=== PATIENT | female | born 1945 | race Caucasian/White ===

== ENCOUNTER 2020-07-01 06:16 | Inpatient (IN) ==
[2020-06-20 11:40] LABS: Hematocrit 45.7 VOL% (35.7-47.0); Hemoglobin 14.8 GM/DL (12.0-16.0); Red Blood Count 4.59 MC/CUMM (3.8-5.5); White Blood Count 7.5 T/CUMM (4-12)
[2020-06-20 11:41] LABS: Basophils # 0.1 10*3/uL (0.0-0.2); Basophils % 0.7 % (0.0-0.8); Eosinophils # 0.1 10*3/uL (0.0-0.87); Eosinophils % 1.6 % (0.00-10.9); Immature Granulocytes % 0.3 %; Immature Granulocytes Absolute 0.02 #; Lymphocytes # 3.1 10*3/uL (1.4-4.0); Lymphocytes % 41.7 % (21.3-54.2); Mean Corpuscular HGB Conc 32.4 GM/DL (32-36); Mean Corpuscular Volume 99.6 FL (87-102); Mean Platelet Volume 11.1 FL (9.6-12.0); Monocytes % 8.7 % (1.7-12.7); Platelet Count 196 T/CUMM (130-400); Red Cell Distribution Width 13.8 % (9.3-17.3)
[2020-06-20 11:45] LABS: Albumin 3.9 G/DL (3.4-5.0); Bilirubin,Total 0.4 MG/DL (0.2-1.0); Calcium 9.3 MG/DL (8.5-10.1); Potassium 4.2 MMOL/L (3.5-5.1); Total Protein 8.1 G/DL (5.0-7.5)
[2020-06-20 11:54] LABS: PT Patient Result 10.9 SECS (9.8-11.9)
[~2020-07-01 06:16] MED LIST: LACTATED RINGERS 1,000 ML IV SCH; ceFAZolin 1,000 MG in SYRINGE 1 EACH IV ONE
[2020-07-01] MEDS ORDERED: LIDOCAINE 1% 5 ML VIAL ONE (07:05)
[2020-07-01] MEDS ORDERED: DEXAMETHASONE 4 MG/1 ML VIAL ONE (07:05)
[2020-07-01] MEDS ORDERED: ROPIVACAINE 0.5% 30 ML VIAL ONE (07:05)
[2020-07-01] MEDS ORDERED: DEXMEDETOMIDINE 200 MCG/2 ML VIAL ONE (07:09)
[2020-07-01] MEDS ORDERED: HEPARIN/NACL 0.9% 2 UNITS/ML 500 ML IV ONE (07:09)
[2020-07-01] MEDS ORDERED: NITROGLYCERIN DRIP 0 MG/0 ML BOTTLE IV ONE (07:23)
[2020-07-01] MEDS ORDERED: PHENYLEPHRINE DRIP 0 MG/0 ML PREMIX IV ONE (07:24)
[2020-07-01] MEDS ORDERED: fentaNYL 100 MCG/2 ML VIAL ONE (07:32)
[2020-07-01] MEDS ORDERED: TISSUE ADHESIVE 1 EACH APPLICATOR TOP ONE (07:48)
[2020-07-01] MEDS ORDERED: VANCOMYCIN 500 MG VIAL ONE (07:48)
[2020-07-01] MEDS ORDERED: GLYCOPYRROLATE 0.4 MG/2 ML VIAL ONE ×2 (09:27→10:02)
[2020-07-01] MEDS ORDERED: ROCURONIUM 50 MG/5 ML VIAL IV ONE (09:27)
[2020-07-01] MEDS ORDERED: ETOMIDATE 40 MG/20 ML VIAL IV ONE (09:28)
[2020-07-01] MEDS ORDERED: LIDOCAINE 2% 5 ML VIAL ONE (09:28)
[2020-07-01] MEDS ORDERED: NEOSTIGMINE 10 MG/10 ML VIAL ONE (10:02)
[2020-07-01] MEDS ORDERED: ONDANSETRON 4 MG/2 ML VIAL IV PRN (10:16)
[2020-07-01] MEDS ORDERED: BISACODYL 5 MG TABLET PO PRN (10:16)
[2020-07-01] MEDS ORDERED: GLUCAGON 1 MG VIAL IM PRN (10:23)
[2020-07-01] MEDS ORDERED: DEXTROSE 50% 25 GM/50 ML VIAL IV PRN (10:23)
[2020-07-01] MEDS: fentaNYL 2 MCG/ROPIV 0.2% EPID 100 ML EPIDURAL SCH (10:40)
[2020-07-01] MEDS ORDERED: SEVOFLURANE 1 UNIT/15 MINUTE INH ONE (11:46)
[2020-07-01] MEDS: LACTATED RINGERS 1,000 ML IV SCH ×3 (13:35→23:00)
[2020-07-01] MEDS: ALBUTEROL/IPRATROPIUM 3 ML NEB RESP TX SCH ×2 (14:35→19:20)
[2020-07-01] MEDS: SIMVASTATIN 20 MG TABLET PO SCH (21:15)
[2020-07-02] MEDS: ALBUTEROL/IPRATROPIUM 3 ML NEB RESP TX SCH ×4 (00:14→19:27)
[2020-07-02] MEDS ORDERED: ENOXAPARIN 40 MG/0.4 ML SYRINGE SUBCUT SCH (04:20)
[2020-07-02] MEDS: fentaNYL 2 MCG/ROPIV 0.2% EPID 100 ML EPIDURAL SCH (05:06)
[2020-07-02] MEDS: LACTATED RINGERS 1,000 ML IV SCH (05:38)
[2020-07-02 06:25] LABS: Basophils % 0.2 % (0.0-0.8); Hematocrit 39.1 VOL% (35.7-47.0); Hemoglobin 12.7 GM/DL (12.0-16.0); Immature Granulocytes % 0.3 %; Immature Granulocytes Absolute 0.04 #; Lymphocytes # 1.5 10*3/uL (1.4-4.0); Lymphocytes % 11.6 % (21.3-54.2); Mean Corpuscular HGB Conc 32.5 GM/DL (32-36); Monocytes % 7.5 % (1.7-12.7); Neutrophils % 80.4 % (38.7-73.9); Platelet Count 147 T/CUMM (130-400); Red Blood Count 3.91 MC/CUMM (3.8-5.5); Red Cell Distribution Width 13.5 % (9.3-17.3); White Blood Count 12.7 T/CUMM (4-12)
[2020-07-02 06:38] LABS: Calcium 8.3 MG/DL (8.5-10.1); Osmolality,Calculated 280.7 MOS/KG (273-304); Potassium 4.1 MMOL/L (3.5-5.1)
[2020-07-02 06:51] LABS: Hypochromasia Slight; Microcytosis Slight; Platelet Estimate Adequate
[2020-07-02] MEDS: sitaGLIPtin 25 MG TABLET PO SCH (09:50)
[2020-07-02] MEDS: ASPIRIN EC 81 MG TABLET PO SCH (09:51)
[2020-07-02] MEDS: PANTOPRAZOLE 40 MG TABLET PO SCH (09:51)
[2020-07-02] MEDS: CLOPIDOGREL 75 MG TABLET PO SCH (11:18)
[2020-07-02] MEDS: BYDUREON SUBCUT SCH (16:10)
[2020-07-02 18:38] LABS: Bilirubin,Urine Negative (Negative); Blood, Urine Small mg/dL (Negative); Glucose,Urine (UA) Negative (Negative); Ketones,Urine Negative (Negative); Mucus,Urine Occasional /LPF (Occasional); Nitrite,Urine Negative (Negative); Protein,Urine Negative; RBC,Urine 2 /HPF (0-4); Squamous Epithelial Cell,Urine Occasional /HPF (0-10); Urine Appearance Slightly Hazy (Clear); Urine Color Yellow (Yellow); Urine Specific Gravity 1.013 (1.001-1.035); Urine Urobilinogen < 2.0 EU/DL (0.2-1.0); WBC,Urine 124 /HPF (0-6)
[2020-07-02] MEDS: SIMVASTATIN 20 MG TABLET PO SCH (21:45)
[2020-07-03] MEDS: ALBUTEROL/IPRATROPIUM 3 ML NEB RESP TX SCH ×4 (00:16→20:02)
[2020-07-03] MEDS: fentaNYL 2 MCG/ROPIV 0.2% EPID 100 ML EPIDURAL SCH (02:26)
[2020-07-03] MEDS: ASPIRIN EC 81 MG TABLET PO SCH (08:52)
[2020-07-03] MEDS: PANTOPRAZOLE 40 MG TABLET PO SCH (08:52)
[2020-07-03] MEDS: CLOPIDOGREL 75 MG TABLET PO SCH (08:52)
[2020-07-03] MEDS: sitaGLIPtin 25 MG TABLET PO SCH (08:52)
[2020-07-03] MEDS ORDERED: HYDROmorphone 2 MG/1 ML VIAL IV PRN (14:04)
[2020-07-03] MEDS ORDERED: oxyCODONE/ACETAMINOPHEN 5-325 MG TABLET PO PRN ×2 (14:05→14:29)
[2020-07-03] MEDS ORDERED: KETOROLAC 30 MG/1 ML VIAL IV ONE (15:00)
[2020-07-03] MEDS: KETOROLAC 10 MG TABLET PO SCH (20:58)
[2020-07-03] MEDS: SIMVASTATIN 20 MG TABLET PO SCH (20:59)
[2020-07-04] MEDS: ALBUTEROL/IPRATROPIUM 3 ML NEB RESP TX SCH ×4 (01:34→20:21)
[2020-07-04] MEDS: KETOROLAC 10 MG TABLET PO SCH ×4 (03:05→20:25)
[2020-07-04 06:26] LABS: Calcium 8.5 MG/DL (8.5-10.1); Osmolality,Calculated 280.5 MOS/KG (273-304); Potassium 3.8 MMOL/L (3.5-5.1)
[2020-07-04] MEDS: CLOPIDOGREL 75 MG TABLET PO SCH (08:53)
[2020-07-04] MEDS: ASPIRIN EC 81 MG TABLET PO SCH (08:53)
[2020-07-04] MEDS: PANTOPRAZOLE 40 MG TABLET PO SCH (08:53)
[2020-07-04] MEDS: sitaGLIPtin 25 MG TABLET PO SCH (08:54)
[2020-07-04] MEDS: SIMVASTATIN 20 MG TABLET PO SCH (20:26)
[2020-07-04] MEDS: ENOXAPARIN 30 MG/0.3 ML SYRINGE SUBCUT SCH (20:27)
[2020-07-05] MEDS: ALBUTEROL/IPRATROPIUM 3 ML NEB RESP TX SCH ×4 (01:16→19:30)
[2020-07-05] MEDS: KETOROLAC 10 MG TABLET PO SCH ×4 (03:00→20:37)
[2020-07-05] MEDS: PANTOPRAZOLE 40 MG TABLET PO SCH (09:03)
[2020-07-05] MEDS: sitaGLIPtin 25 MG TABLET PO SCH (09:03)
[2020-07-05] MEDS: CLOPIDOGREL 75 MG TABLET PO SCH (09:03)
[2020-07-05] MEDS: ASPIRIN EC 81 MG TABLET PO SCH (09:03)
[2020-07-05] MEDS: ENOXAPARIN 30 MG/0.3 ML SYRINGE SUBCUT SCH (20:37)
[2020-07-05] MEDS: SIMVASTATIN 20 MG TABLET PO SCH (20:37)
[2020-07-06] MEDS: ALBUTEROL/IPRATROPIUM 3 ML NEB RESP TX SCH ×4 (00:25→19:15)
[2020-07-06] MEDS: KETOROLAC 10 MG TABLET PO SCH ×5 (04:20→21:18)
[2020-07-06] MEDS: ASPIRIN EC 81 MG TABLET PO SCH (08:00)
[2020-07-06] MEDS: sitaGLIPtin 25 MG TABLET PO SCH (08:01)
[2020-07-06] MEDS: PANTOPRAZOLE 40 MG TABLET PO SCH (08:01)
[2020-07-06] MEDS: CLOPIDOGREL 75 MG TABLET PO SCH (08:01)
[2020-07-06] MEDS: SIMVASTATIN 20 MG TABLET PO SCH (21:18)
[2020-07-06] MEDS: ENOXAPARIN 30 MG/0.3 ML SYRINGE SUBCUT SCH (21:18)
[2020-07-07] MEDS: ALBUTEROL/IPRATROPIUM 3 ML NEB RESP TX SCH ×4 (00:06→19:30)
[2020-07-07] MEDS: KETOROLAC 10 MG TABLET PO SCH ×4 (03:28→21:06)
[2020-07-07] MEDS: CLOPIDOGREL 75 MG TABLET PO SCH (08:39)
[2020-07-07] MEDS: sitaGLIPtin 25 MG TABLET PO SCH (08:39)
[2020-07-07] MEDS: ASPIRIN EC 81 MG TABLET PO SCH (08:39)
[2020-07-07] MEDS: PANTOPRAZOLE 40 MG TABLET PO SCH (08:40)
[2020-07-07] MEDS: ENOXAPARIN 30 MG/0.3 ML SYRINGE SUBCUT SCH (21:06)
[2020-07-07] MEDS: SIMVASTATIN 20 MG TABLET PO SCH (21:06)
[2020-07-08] MEDS: ALBUTEROL/IPRATROPIUM 3 ML NEB RESP TX SCH ×4 (01:10→19:48)
[2020-07-08] MEDS: KETOROLAC 10 MG TABLET PO SCH (04:25)
[2020-07-08] MEDS ORDERED: ACETAMINOPHEN 325 MG TABLET PO PRN (08:55)
[2020-07-08] MEDS: PANTOPRAZOLE 40 MG TABLET PO SCH (09:56)
[2020-07-08] MEDS: sitaGLIPtin 25 MG TABLET PO SCH (09:56)
[2020-07-08] MEDS: CLOPIDOGREL 75 MG TABLET PO SCH (09:56)
[2020-07-08] MEDS: ASPIRIN EC 81 MG TABLET PO SCH (09:57)
[2020-07-08] MEDS: ENOXAPARIN 30 MG/0.3 ML SYRINGE SUBCUT SCH (20:47)
[2020-07-08] MEDS: SIMVASTATIN 20 MG TABLET PO SCH (20:48)
[2020-07-09] MEDS: ALBUTEROL/IPRATROPIUM 3 ML NEB RESP TX SCH ×2 (00:22→07:39)
[2020-07-09] MEDS: PANTOPRAZOLE 40 MG TABLET PO SCH (08:42)
[2020-07-09] MEDS: BYDUREON SUBCUT SCH (08:42)
[2020-07-09] MEDS: sitaGLIPtin 25 MG TABLET PO SCH (08:42)
[2020-07-09] MEDS: ASPIRIN EC 81 MG TABLET PO SCH (08:42)
[2020-07-09] MEDS: CLOPIDOGREL 75 MG TABLET PO SCH (08:42)
[2020-07-09 12:14] VITALS: BP 133/64
== END 2020-07-09 13:00 | disposition home or self-care (01) | DRG 829 ==
LOC: N.OR 06:16 → N.SDSINP 06:18 → EDSTATUS 09:45 → N.SDSINP 10:16 → N.5E 12:24
PROVIDERS: ADMIT Surgery; ATTEND Surgery